=== PATIENT | male | born 2005 | race Caucasian/White ===

== ENCOUNTER 2023-07-03 08:58 | Emergency (ER) | payer BC ==
[~2023-07-03] VITALS: Ht 177.8 cm; Wt 112.1 kg
[~2023-07-03 08:58] MED LIST: CLARITIN10 MG PO
[2023-07-03 10:16] VITALS: BP 126/69
== END 2023-07-03 10:16 | disposition home or self-care (01) ==
LOC: ED 08:58
DX: S43.402A Unspecified sprain of left shoulder joint, initial encounter (principal); V48.5XXA Car driver injured in noncollision transport accident in traffic accident, initial encounter; Y92.411 Interstate highway as the place of occurrence of the external cause
CPT/HCPCS: 73030; A9270

== ENCOUNTER 2024-08-26 22:45 | Emergency (ER) | payer BC ==
[~2024-08-26] VITALS: Ht 177.8 cm; Wt 140.2 kg
[2024-08-26] MEDS ORDERED: AMP/SULBACTAM SOD 3 GM in SODIUM CHLORIDE 0.9% 100 ML IV ONE (23:45)
[2024-08-26] MEDS ORDERED: levoFLOXacin 500 MG PIGGYBACK IV ONE (23:45)
[2024-08-27 00:07] LABS: BASOPHILS 0.5 % (0-2); EOSINOPHILS 1.4 % (0-6); HEMATOCRIT 43.8 % (35.0-50.0); LYMPHOCYTES 22.9 % (24-44); MCH 29.1 (27-36); MCHC 34.2 g/dl (30-36); MCV 85.1 fl (81-99); MONOCYTES 9.4 % (0-12); NEUTROPHILS 65.8 % (39-80); PLATELET COUNT 362 K/uL (140-440); RBC 5.14 M/ul (4.3-5.7); RDW 12.5 (10.5-15.0)
[2024-08-27] MEDS ORDERED: AMP/SULBACTAM SOD 3 GM VIAL IV ONE (00:12)
[2024-08-27 00:22] LABS: ALBUMIN 3.9 g/dL (3.4-5.0); ALBUMIN/GLOBULIN RATIO 0.95 (1.1-2.4); ANION GAP 10.9 (7-21); BILIRUBIN, TOTAL 0.6 ng/dL (0.2-1.0); BUN/CREATININE RATIO 12.22 (6.0-28.6); CALCIUM 9.1 mg/dL (8.5-10.1); CREATININE, SERUM 0.9 mg/dL (0.70-1.30); POTASSIUM 3.9 mmol/L (3.5-5.1)
[2024-08-27] MEDS ORDERED: AMOX TR-K CLV1 EAC1 PO (00:27)
[2024-08-27] MEDS ORDERED: CIPROFLOX-DEXA7.5 ML AS (00:28)
[2024-08-27] MEDS ORDERED: LEVOFLOXACIN750 MG PO (01:01)
[2024-08-27] MEDS ORDERED: HYDROCODONE BIT/ACETAMINOPHEN 5/325 MG 1 TAB HOME.PACK PO ONE (01:15)
[2024-08-27] MEDS ORDERED: methylPREDNISolone 4 MG HOME.PACK PO ONE (01:15)
[2024-08-27 02:21] VITALS: BP 117/55
== END 2024-08-27 02:21 | disposition home or self-care (01) ==
LOC: ED 22:45
PROVIDERS: Family Medicine
DX: H66.002 Acute suppurative otitis media without spontaneous rupture of ear drum, left ear (principal); H60.92 Unspecified otitis externa, left ear; Z79.899 Other long term (current) drug therapy
CPT/HCPCS: 36415; 70487; 80053; 85025; 96368; 99283-25; A9270; J0295; J1956; Q9967